=== PATIENT | female | born 1935 | race Caucasian/White ===

== ENCOUNTER → 2016-05-08 | Day surgery (SDC) | payer OTHER ==
[~2016-05-08] MED LIST: ALPRAZOLAM PO; ALTACE PO; CALCIUM CARBON600 M1; CARAFATE1 GM PO; CRESTOR5 MG PO; CYMBALTA PO; DARVOCET-N 1001 TAB PO; DESYREL50 MG DOB; DULOXETINE HCL60 MG PO; ELIQUIS5 MG PO; FISH OIL 1,0001 CAP; HUMALOG100 U/ML SUBQ; IMDUR-ER30 M3 DOB; LANTUS100 U/ML; LANTUS100 UNITS/ SUBQ; MOBIC PO; MULTI VITAMIN1 EACH PO; NEXIUM PO; NITROGLYCERIN0.4 MG SL; NORVASC PO; PERCOCET 10/31 UDTA1 PO; PRILOSEC PO; PROTONIX PO; SOTALOL AF120 M1 PO; SYNTHROID25 MCG PO; TIMOPTIC 0.5% OP5 M1 OD; TIMOPTIC2.5 ML OP; WELLBUTRIN PO; XANAX0.5 M1 DOB
--- NOTE | ~2016-05-08 | OR ---
Unit #: [id number] #: [id number] Patient: MONICA BRAY [id number] [address] [id number] MR#: [id number] NAME: MONICA BRAY ROOM: Date of Procedure: 05/08/2016 Admission Date: 05/08/2016 Surgeon: Buck Locke M.D. : 1935 Attending Physician: Buck Locek M.D. Primary Care Physician: Romario Black M.D. OPERATIVE REPORT INDICATIONS FOR PROCEDURE Esophagogastroduodenoscopy with biopsy and esophagogastroduodenoscopy with balloon dilatation. INDICATIONS FOR PROCEDURE The patient with chronic GERD symptoms, now with dysphagia, undergoing upper endoscopy for evaluation. MEDICATIONS Monitored anesthesia. POSTOPERATIVE FINDINGS 1. Distal esophagus shows significant esophagitis along with some narrowing. Dilation was carried out with a balloon to 20 mm. 2. Diffuse gastritis, biopsies taken. 3. Normal duodenum and distal duodenum. PLAN PPI therapy. Add Carafate. Follow up on the pathology report. DESCRIPTION OF PROCEDURE The patient was explained of the procedure, risks, and benefits along with risks and benefits of anesthesia. She was brought to the endoscopy room. Propofol anesthesia was given. Bite block was placed. The scope was passed down the mouth into the esophagus, stomach, duodenum, and distal duodenum. Findings as described. Biopsies taken. Dilation was then carried out successfully. Upper and midesophagus were normal. Gently, I pulled it out. She tolerated it well. Dictated by... Schuyler Hoffman/danya TD: 05/08/2016 22:30 JOB #: [id number] Unit #: [id number] #: [id number] Patient: MONICA BRAY OPERATIVE REPORT Page 1 of 1 X Buck Locke MD X PROCEDURE OPERATIVE NOTE
== END | disposition home or self-care (01) ==
LOC: COPS 07:27
DX: K29.50 Unspecified chronic gastritis without bleeding (principal); K22.70 Barrett's esophagus without dysplasia; K20.9 Esophagitis, unspecified; I10 Essential (primary) hypertension; I25.2 Old myocardial infarction; E11.9 Type 2 diabetes mellitus without complications; E03.9 Hypothyroidism, unspecified; M79.7 Fibromyalgia; F17.210 Nicotine dependence, cigarettes, uncomplicated; Z88.0 Allergy status to penicillin; Z88.5 Allergy status to narcotic agent; Z88.8 Allergy status to other drugs, medicaments and biological substances; Z79.01 Long term (current) use of anticoagulants; Z79.899 Other long term (current) drug therapy
CPT/HCPCS: 82947; 88305; 88312